=== PATIENT | male | born 1955 | race Two or more races ===

== ENCOUNTER 2025-06-02 00:32 | Emergency (ER) | payer MEDICARE, MEDICAID, SELFPAY ==
[2025-06-02 00:33] VITALS: BMI 25.7
[2025-06-02 00:47] VITALS: BP 171/75; PULSE 66; RESP 20; TEMP 36.8; O2SAT 97
--- NOTE | 2025-06-02 00:54 | PD.EDRME ---
Rapid Medical Screening Exam RME Arrival date/time: 06/02/25 00:32 Chief Complaint: Abdominal Pain Vital signs: Vital Signs Temperature 98.3 F 06/02/25 00:47 Pulse Rate 66 06/02/25 00:47 Respiratory Rate 20 06/02/25 00:47 Blood Pressure 171/75 H 06/02/25 00:47 Pulse Oximetry (%) 97 06/02/25 00:47 Oxygen Delivery Method Room Air 06/02/25 00:47 Pulse ox is 97% room air Vital signs reviewed by provider: Yes RME Narrative: 70-year-old male presents to the ED with complaints of pain to the abdomen that began at 9:00 last evening. Patient was not able to sleep due to the pain. Patient was not able to describe it. Denies nausea, vomiting, diarrhea. Last bowel movement was this yesterday morning.
[2025-06-02 01:46] LABS: Basophils # (Auto) 0.0 Thou/mm3 (0.0-0.2); Basophils % (Auto) 0 % (0-2.5); Eosinophils # (Auto) 1.0 Thou/mm3 (0.0-0.5); Eosinophils % (Auto) 12 % (0-10); Hematocrit 43.8 % (41.0-53.0); Hemoglobin 14.7 g/dL (13.5-16.0); Immature Granulocytes Auto 0.03 Thou/mm3 (0.00-0.00); Lymphocytes # (Auto) 1.6 Thou/mm3 (1.0-4.8); Lymphocytes % (Auto) 19 % (10-50); Mean Corpuscular HGB Conc 33.6 g/dl (31.0-37.0); Mean Corpuscular Hemoglobin 32.1 pg (25.0-35.0); Mean Corpuscular Volume 96 fL (80-100); Monocytes # (Auto) 0.4 Thou/mm3 (0.0-0.8); Monocytes % (Auto) 4 % (0-12); Neutrophils # (Auto) 5.4 Thou/mm3 (1.8-7.7); Neutrophils % (Auto) 64 % (37-80); Nucleated Red Blood Cell # 0.00 Thou/mm3 (0.00-0.00); Nucleated Red Blood Cell % 0 /100 WBC (0); Platelet Count 194 Thou/mm3 (140-440); RDW Standard Deviation 45.9 fL (35.1-43.9); Red Blood Count 4.58 Miln/mm3 (4.50-5.90); White Blood Count 8.4 Thou/mm3 (3.8-10.6)
[2025-06-02 02:07] LABS: Alanine Aminotransferase 17 U/L (10-49); Albumin, Serum 4.3 gm/dL (3.4-4.8); Albumin/Globulin Ratio 1.6 (1.2-2.2); Alkaline Phosphatase 67 U/L (46-116); Anion Gap 10 (7-16); Aspartate Amino Transferase 24 U/L (0-34); BUN/Creatinine Ratio 11 Ratio (12-20); Bilirubin,Total 0.6 mg/dL (0.3-1.2); Blood Urea Nitrogen 15 mg/dL (9-23); Calcium 9.6 mg/dL (8.3-10.6); Calcium (Corrected) 9.6 mg/dL (8.5-10.1); Carbon Dioxide 25.5 mMol/L (20.0-31.0); Chloride 105 mMol/L (98-107); Creatinine (Component) 1.4 mg/dL (0.6-1.3); Estimated Creatinine Clearance 42.7 mL/min (>60); Globulin 2.7 gm/dL (2.3-3.5); Glucose 158 mg/dL (74-106); Lipase 68 U/L (12-53); Magnesium 1.8 mg/dL (1.6-2.6); Osmolality,Calculated 283 (275-295); Potassium 3.7 mMol/L (3.4-5.1); Procalcitonin < 0.04 ng/ml (0.0-0.49); Sodium 140 mMol/L (136-145); Total Protein 7.0 gm/dL (5.7-8.2); eGFR 54 See Note
[2025-06-02 03:18] VITALS: BP 155/85; PULSE 76; RESP 18; TEMP 37; O2SAT 100
--- NOTE | 2025-06-02 04:15 | PD.EDABDPN ---
ED Abdominal Pain RME/HPI General Chief Complaint: Abdominal Pain Stated complaint: UPPER ABDOMINAL PAIN Arrival date/time: 06/02/25 00:32 RME / HPI RME / HPI narrative: 70-year-old male presents to the ED with complaints of pain to the abdomen that began at 9:00 last evening. Patient was not able to sleep due to the pain. Patient was not able to describe it. Denies nausea, vomiting, diarrhea. Last bowel movement was this yesterday morning. DR. TODD MAIN ED EVALUATION: Patient presents with epigastric abdominal pain with onset at 10 PM, poorly described, non-radiating. No associated nausea, fever, vomiting, or chills. Denies dysuria. PMH: Type II DM, HTN. PSH: Femoral arterial stent placement. Allergies: None. Social: No alcohol, tobacco, or illicit drug abuse. Related Data Home Medications ?Medication ?Instructions ?Recorded ?Confirmed allopurinol 100 mg tablet 100 mg PO QDAY 06/27/22 06/27/22 aspirin 81 mg tablet,delayed 81 mg PO QDAY 06/27/22 06/27/22 release atorvastatin 20 mg tablet 20 mg PO QDAY 06/27/22 06/27/22 lisinopril 5 mg tablet 5 mg PO QDAY 06/27/22 06/27/22 metformin 500 mg tablet 500 mg PO QDAY 06/27/22 06/27/22 metoprolol tartrate 50 mg tablet 50 mg PO QDAY 06/27/22 06/27/22 Previous Rx's ?Medication ?Instructions ?Recorded albuterol sulfate 90 mcg/actuation 2 inh inhalation Q4H PRN shortness 06/27/22 aerosol inhaler of breath or wheezing #8.5 grams acetaminophen 300 mg-codeine 15 mg 1 tab PO Q8H PRN pain #20 tabs 06/02/25 tablet metoclopramide HCl 5 mg tablet 5 mg PO .30 min ac and hs #30 tabs 06/02/25 (Reglan) pantoprazole 20 mg tablet,delayed 20 mg PO QDAY #30 tabs 06/02/25 release (Protonix) Allergies Allergy/AdvReac Type Severity Reaction Status Date / Time No Known Allergies Allergy Verified 06/27/22 10:21 Review of Systems Review of Systems Systems Reviewed: All systems reviewed, normal except as documented Past Medical History Past Medical History CARDIAC: Positive Hypercholesterolemia and Hypertension ENDOCRINE: Positive Diabetes Mellitus Type 2 Surgical History SURGICAL: Positive Coronary Stent ED Exam Narrative Physical exam: GEN. APPEARANCE: The patient is alert awake oriented X-3 in no distress, lying down comfortably, does not look ill/toxic. Patient has good eye contact. Patient is cooperative. VITALS: All vitals were reviewed and the pulse ox is 100% on room air which is normal according to my interpretation. HEENT: Normocephalic, atraumatic. Pupils are equal and reactive. Oral mucosa is moist. Patent Nares NECK: Supple, nontender, no thyromegaly, no meningismus, no JVD, no step offs CHEST: Symmetrical, atraumatic, and with equal expansion , Nontender on palpation no deformity and no crepitus. CARDIOVASCULAR: Heart regular rhythm no murmur or gallop rub or extra beats. LUNGS: Clear to auscultation bilaterally with symmetrical chest rise. No laboring tachypnea or wheezing. No intercostal subcostal retraction. No rales and no rhonchi. ABDOMEN: Soft, flat, mild tenderness to epigastrium, no guarding or rebound tenderness. There are no abnormal masses palpated. Active and normal bowel sounds. EXTREMITIES: Nontender. No edema. No cyanosis. Patient is able to move all 4 extremities well, with full ROM and good CSM. SKIN: Warm and dry, no jaundice or rashes noted. MUSCULOSKELETAL: No lubar or midline bony tenderness. There is no CVA tenderness. No paraspinal muscle spasm or tenderness. NEURO: Patient is DALE x 4, Cranial nerves II through XII grossly intact. There is no focal neurologic deficits noted. GCS is 15, PNS and [employer]AP[employer] EXAMINER appear grossly intact. PSYCHIATRIC: Patient is in normal mood and affect, cooperative, no SI or HI or hallucinations. Course Quality Measures none Orders Category Date Time Status CT Screening NOW Care 06/02/25 00:58 Completed CBC Stat Lab 06/02/25 01:18 Completed Comprehensive Metabolic Panel Stat Lab 06/02/25 01:18 Completed Lipase Stat Lab 06/02/25 01:18 Completed Magnesium Stat Lab 06/02/25 01:18 Completed Procalcitonin Stat Lab 06/02/25 01:18 Completed Troponin I Stat Lab 06/02/25 01:18 Completed Lidocaine 2% Viscous [Xylocaine 2% Viscous] Med 06/02/25 04:14 Discontinued 15 ml PO X1 ONE Metoclopramide Inj [Reglan Inj] Med 06/02/25 04:16 Discontinued 5 mg IVP X1 ONE Pantoprazole Inj [Protonix Inj] Med 06/02/25 04:14 Discontinued 40 mg IVP X1 ONE mg Hyd/Al Hyd/Swati Susp [Maalox Susp] Med 06/02/25 04:14 Discontinued 30 ml PO X1 ONE Vital Signs Vital signs: Vital Signs Temperature 98.3 F 06/02/25 00:47 Pulse Rate 66 06/02/25 00:47 Respiratory Rate 20 06/02/25 00:47 Blood Pressure 171/75 H 06/02/25 00:47 Pulse Oximetry (%) 97 06/02/25 00:47 Oxygen Delivery Method Room Air 06/02/25 00:47 Abdominal Pain MDM MDM Narrative MDM Narrative:: Scribe Attestation: Aleyda Franco am scribing for and in the presence of Dr. Todd. Provider Notation: Although this document has been carefully reviewed, there may still be some phonetic and other typographical errors. These errors are purely grammatical due to imperfections in the software program and should not be construed in any way to compromise the substance of the patient's medical care during this visit. Patient presents with epigastric abdominal pain with onset at 10 PM, poorly described, non-radiating. No associated nausea, fever, vomiting, or chills. Please see PE findings. Laboratory markers demonstrate normal WBC of 8.4, HNH 0.43, and platelet count of 194. Serum chemistries demonstrate mildly elevated creatinine of 1.4, GFR of 54, and mildly elevated glucose of 158. LFT's within normal limits. Lipase mildly elevated at 68. patient treated with GI cocktail, PPI, and propulsive agent. Serial evaluation of the abdomen is benign. Patient is resting comfortably. Will be placed on PPI, recommend clear liquid diet, and close F/U with PMD. Final diagnoses include gastritis and pancreatitis. Patient data External records reviewed:: [facility] previous records (Reviewed prior ED records from 06/27/22. Patient was seen for Shortness of breath.) Clinical information provided by:: patient Social determinants that could affect healthcare access:: none Patient has the following chronic illnesses:: Hypercholesterolemia, Hypertension, Diabetes Mellitus Type 2 How is presenting disease/condition affected by chronic disease/condition?: exacerbated by Evaluation data The following diagnostics were reviewed and interpreted by me:: lab results and EKG tracing(s) Lab and/or radiology exams considered but not ordered:: None Interpretation Summary: See MDM above Medications / Prescriptions Medications or Prescriptions considered but not ordered:: None Medication administrations:: Medication Administration History Discontinued Medications Al Hydrox/Mg Hydrox/Simethicone (Mg Hyd/Al Hyd/Swati (Maalox Reg) Susp 30 Ml Udc) 30 ml PO X1 ONE Stop: 06/02/25 04:15 Last Admin: 06/02/25 05:06 Dose: 30 ml Documented By: LEONEL Lidocaine HCl (Lidocaine Viscous 2% 15 Ml Udc) 15 ml PO X1 ONE Stop: 06/02/25 04:15 Last Admin: 06/02/25 05:06 Dose: 15 ml Documented By: LEONEL Metoclopramide HCl (Metoclopramide Inj 5 Mg/Ml Vial 2 Ml) 5 mg IVP X1 ONE; Protocol Stop: 06/02/25 04:17 Last Admin: 06/02/25 05:06 Dose: 5 mg Documented By: LEONEL Pantoprazole Sodium (Pantoprazole Inj 40 Mg Vial) 40 mg IVP X1 ONE Stop: 06/02/25 04:15 Last Admin: 06/02/25 05:06 Dose: 40 mg Documented By: LEONEL See above if any Consultations Consultation(s) initiated? (list below): No Diagnosis Differential diagnosis abdominal pain: abdominal pain, calculus of kidney, constipation, diverticulitis, gastroenteritis, pancreatitis and small bowel obstruction Most likely diagnosis given after review of the tests above:: Gastritis, Pancreatitis Admission Indicated Admission indicated?: not indicated Explain why admission is indicated or not indicated:: Patient does not meet admission criteria Admission Request Was there a request for admission?: No Disposition Plan Disposition Plan: Discharge Discharge Attestation Discharge Attestation: The patient and all family members were given an opportunity to ask questions and understood the discharge instructions. Discharge instructions specifically effects, indications for sooner follow up or return to the emergency department, and the expected course of current diagnosis. Patient condition: Stable Discharge Plan Plan Patient Disposition: HOME (Self Care) Discharge Disposition comment: Stable Prescriptions/Referrals Prescriptions/Med Rec: New pantoprazole [Protonix] 20 mg tablet,delayed release (DR/EC) 20 mg PO QDAY Qty: 30 1RF metoclopramide HCl [Reglan] 5 mg tablet 5 mg PO .30 min ac and hs Qty: 30 0RF acetaminophen-codeine 300-15 mg tablet 1 tab PO Q8H PRN (Reason: pain) Qty: 20 0RF No Action metformin 500 mg tablet 500 mg PO QDAY Patient Comments: TAKE 1 TABLET BY MOUTH EVERY DAY WITH MEALS atorvastatin 20 mg tablet 20 mg PO QDAY Patient Comments: TAKE 1 TABLET BY MOUTH EVERY DAY allopurinol 100 mg tablet 100 mg PO QDAY Patient Comments: TAKE 1 TABLET BY MOUTH TWICE A DAY Rx Instructions: qd only per pt. aspirin 81 mg Tablet,Delayed Release (Dr/Ec) 81 mg PO QDAY metoprolol tartrate 50 mg tablet 50 mg PO QDAY Patient Comments: TAKE 1 TABLET BY MOUTH EVERY DAY lisinopril 5 mg tablet 5 mg PO QDAY Patient Comments: TAKE 1 TABLET BY MOUTH EVERY DAY albuterol sulfate 90 mcg/actuation HFA aerosol inhaler 2 inh inhalation Q4H PRN (Reason: shortness of breath or wheezing) Qty: 8.5 0RF Referrals: Lorne Dutta MD [Primary Care Provider, Family Practice] - In 1 week Problem List Clinical Impression: Gastritis, Pancreatitis Patient/Caregiver Discharge Instructions Discharge Activity: activity as tolerated Diet Instructions: Avoid hot spicy foods, citrus drinks. Education Materials: Understanding Gastritis, Understanding Pancreatitis, ED Gastritis (Adult), ED Pancreatitis Additional Instructions: Clear liquid diet x 24 to 48 hours. Medications as directed. Avoid alcohol consumption. Follow-up with primary care doctor in 3 to 5 days return if worsening. Print Language: Tagalog Stand Alone Forms: Karen Award Info., Patient Portal Info Letter
[2025-06-02 04:43] LABS: Troponin I < 0.020 ng/mL (0.0-0.045)
[2025-06-02] MEDS: LIDOCAINE VISCOUS 2% 15 ML UDC PO (05:06)
[2025-06-02] MEDS: MG HYD/AL HYD/SIME (Maalox Reg) SUSP 30 ML UDC PO (05:06)
[2025-06-02] MEDS: METOCLOPRAMIDE INJ 5 MG/ML VIAL 2 ML IVP (05:06)
[2025-06-02 06:06] VITALS: RESP 18
== END 2025-06-02 06:09 | disposition home or self-care (01) ==
PROVIDERS: Physician Assistant; Emergency Provider Emergency Medicine; PCP Family Medicine
DX: K85.90 Acute pancreatitis without necrosis or infection, unspecified (principal); K29.70 Gastritis, unspecified, without bleeding
CPT/HCPCS: 36415; 80053; 81001; 83690; 83735; 84145; 84484; 85025; 96374; 96375; 99284; J2470; J2765; J3490; A9270